=== PATIENT | male | born 1955 | race African-American/Black ===

== ENCOUNTER 2018-02-05 15:38 | Emergency (ER) | payer MEDICAID ==
[~2018-02-05] VITALS: Ht 170.2 cm; Wt 100.0 kg
[2018-02-05] MEDS ORDERED: ASPIRIN 81MG TABLET PO ONE (17:00)
[2018-02-05] MEDS ORDERED: NITROGLYCERIN 0.4MG TABLET SL SL PRN (17:00)
[2018-02-05] MEDS ORDERED: IBUPROFEN 600MG TABLET PO ONE (17:30)
[2018-02-05 17:39] LABS: BASOPHILS % 0.1 % (0.0-2.0); EOSINOPHILS % 3.5 % (0.0-5.0); HEMATOCRIT. 36.2 % (42.0-52.0); HEMOGLOBIN. 11.8 g/dL (14.0-18.0); LYMPHOCYTES % 37.7 % (20.0-50.0); MEAN CORPUSCULAR HEMOGLOBIN 27.9 pg (28.0-32.0); MEAN CORPUSCULAR VOLUME 85.6 fL (80.0-94.0); MONOCYTES % 10.8 % (2.0-8.0); NEUTROPHILS % 47.9 % (40.0-76.0); PLATELET 199 x1000/uL (130-400); RED BLOOD CELL COUNT 4.23 mill/uL (4.7-6.1)
[2018-02-05 17:40] LABS: CHLORIDE 110 mEq/L (98-107)
[2018-02-05 17:44] LABS: PARTIAL THROMBOPLASTIN TIME 25.7 sec (23.4-31.0)
[2018-02-05] MEDS ORDERED: IBUPROFEN 600MG TABLET PO SCH (23:10)
[2018-02-05 23:31] VITALS: BP 138/92
== END 2018-02-05 23:31 | disposition short-term general hospital (02) ==
LOC: ER 15:38
DX: S12.591A Other nondisplaced fracture of sixth cervical vertebra, initial encounter for closed fracture (principal); R07.89 Other chest pain; I10 Essential (primary) hypertension; E78.5 Hyperlipidemia, unspecified; W01.198A Fall on same level from slipping, tripping and stumbling with subsequent striking against other object, initial encounter; Y93.89 Activity, other specified; Y92.89 Other specified places as the place of occurrence of the external cause
CPT/HCPCS: 36415; 71045; 72125; 72128; 72131; 73000; 73030; 80053; 83880; 84484; 85025; 85610; 85730; 86850; 86900; 93005; 99285